=== PATIENT | male | born 1970 | race Caucasian/White ===

== ENCOUNTER 2017-04-16 17:09 | Emergency (ER) | payer BC ==
[2017-04-16] MEDS ORDERED: ONDANSETRON HCL 4 MG/2 ML VIAL ONE ×2 (17:35→18:31)
[2017-04-16] MEDS ORDERED: KETOROLAC TROMETHAMINE 30 MG/ML VIAL ONE (17:35)
--- NOTE | 2017-04-16 18:02 | CT REPORT ---
HISTORY: Left flank pain. COMPARISON: None. TECHNIQUE: This examination was performed using automated exposure control, adjustment of mA or kV according to patient size, and/or use of iterative reconstruction technique. Axial contiguous images of the abdome n and pelvis were obtained without oral or IV contrast, coronal reformat images also performed. FINDINGS: LUNGS: There are dependent atelectatic changes. The visualized lungs are otherwise clear. Hepatobiliary:The liver is of diffusely decreased attenuation suggesting moderate fatty infiltration. Foci of increased attenuation within the hepatic parenchyma abutting the gallbladder fossa are most consistent with focal fatty sparing. There is no evidence of biliary ductal dilatation. The gallbladd er is incompletely distended. Spleen: Normal in size and radiographic appearance. Pancreas: No focal pancreatic lesion or pancreatic ductal dilatation. Adrenals:Unremarkable. Kidneys: The kidneys are normal in size bilaterally. There is mild left hydroureteronephrosis, and a 4 x 4 x 4 mm calculus within the proximal left ureter at the level of the left L2 transverse process, best seen image 43 of series 2. There is no evidence of renal or right ureteral calculus. Peritoneum: There is no evidence of free fluid or free air. Vessels: Unremarkable. Lymph nodes: There is no lymphadenopathy. Bowel: The stomach is incompletely distended. The small bowel appears unremarkable. . The colon is in completely distended with stool. No focal bowel wall thickening is seen. Pelvis: The bladder appears unremarkable, without intraluminal mass or calculus. The prostate is mild ly enlarged with median lobe hypertrophy. Bones: The bones are normally mineralized and aligned. No blastic or lytic lesions are seen. The sof t tissues appear unremarkable. IMPRESSION: 1. 4 mm proximal left ureteral calculus with mild associated left hydroureteronephrosis. 2. Fatty infiltration of the liver is nonspecific in appearance, and may reflect infectious, inflamma tory or toxic/metabolic insult. Final Electronic Signature: This report was electronically signed by Michael Duong MD on 7 5:59 PM. tray /
--- NOTE | 2017-04-16 19:19 | ER NURSING DOCUMENTATION ---
Nurse's Notes [facility] Name:Michael Decker Age:46 yrs Sex:Male :1970 Arrival Date:04/16/2017 Time:17:09 Bed1 Private MD: Diagnosis:Ureterolithiasis - Renal Colic Presentation: 04/16 17:12 Acuity: VÍCTOR 2 st 17:17 Presenting complaint: Patient states: pt has had left flank pain that wraps around st toweds the abd for a few hours. Transition of care: patient was not received from another setting of care. 17:17 Method Of Arrival: Private Vehicle st Triage Assessment: 17:19 General: Appears uncomfortable, Behavior is cooperative. Pain: Complains of pain in st anterior aspect of left lateral abdomen and posterior aspect of left lateral abdomen Pain currently is 10 out of 10 on a pain scale. Quality of pain is described as crampy, Pain began 3 hours ago. Cardiovascular: No deficits noted. Respiratory: No deficits noted. GI: Abdomen is flat, non- distended Abd is soft and non tender X 4 quads. Reports nausea, vomiting. Historical: - Allergies: PENICILLINS; - Home Meds: 1. Metoprolol Tartrate Oral - PMHx: Hypertension; - Tetanus: < 10 years. - Ebola Screening: : Patient denies exposure to infectious person. Patient denies travel to an Ebola-affected area in the 21 days before illness onset. . - Social history: Smoking status: Patient states was never smoker of tobacco. Patient uses alcohol Patient/guardian denies using marijuana. Screenin:20 Infectious Disease Risk None. Abuse screen: Denies threats or abuse. Denies injuries st from another. Nutritional screening: No deficits noted. Assessment: 17:25 General: pt is restless.. st 18:16 General: pt states his pain is coming back full force with nausea again. . st Vital Signs: 17:14 BP 132 / 105 LA Sitting (auto/lg); Pulse 76 RA; Resp 22 S; Temp 98.6(O); Pulse Ox 91% em3 on R/A; Weight 136.08 kg (R); Height 5 ft. 9 in. (175.26 cm) (R); Pain 10/10; 17:52 Pain 2/10; st 18:28 Pulse 78; Resp 16; Pulse Ox 92% on 2 lpm NC; st 19:16 BP 132 / 79; Pulse 88; Resp 16; Pulse Ox 94% on R/A; sc1 17:14 Body Mass Index 44.30 (136.08 kg, 175.26 cm) em3 ED Course: 17:10 Patient arrived in ED. ama 17:12 Triage completed. rh 17:14 Benny Colin MD is Attending Physician. sc 17:15 Valuables Remains with patient Patient has correct armband on for positive em3 identification. Placed in gown. Bed in low position. Call light in reach. Side rails up X 1. 17:16 Toyin Teresa, RN is Primary Nurse. st 17:24 Inserted peripheral IV: 20 gauge in right antecubital area. st 17:[address] hz 17:48 Patient moved back from CT. hz 17:52 Discontinued IV got caught and pulled on trip to radiology. st 17:56 Urine collected. Voided. st 18:05 Blair Reinoso MD is Referral Physician. sc 18:18 Missed attempts: 22 gauge X 1 in right hand, Bleeding controlled, band aid applied, em3 catheter tip intact. 18:24 Inserted peripheral IV: 22 gauge in left antecubital area. em3 18:29 Oxygen Oxygen administration via nasal cannula @ 2L/min. st 19:16 Discontinued lock intact, bleeding controlled, pressure dressing applied, No sc1 redness/swelling at site. Administered Medications: 17:24 Drug: Toradol 30 mg; Route: IVP; Site: right antecubital; st 18:16 Follow up: Response: Pain is decreased st 17:25 Drug: Zofran 4 mg; Route: IVP; Infused Over: 2 mins; Site: right antecubital; st 18:16 Follow up: Response: Nausea is decreased st 17:25 Drug: NS 0.9% 1000 ml; Route: IV; Rate: bolus; Site: right antecubital; st 19:19 Follow up: IV Status: Completed infusion; IV Intake: 1000ml sc1 18:27 Drug: Zofran 4 mg; Route: IVP; Infused Over: 2 mins; Site: left antecubital; st 19:18 Follow up: Response: No adverse reaction; Nausea is decreased sc1 18:27 Drug: Dilaudid 1 mg; Route: IVP; Site: left antecubital; st 19:19 Follow up: Response: No adverse reaction; Pain is decreased [facility] Point of Care Testing: Urine Dip: 18:00 pH: 6.0; ; Specific [place]: 1.020; Ketones: Negative; Glucose: Negative; Protein: em3 Positive (+); Leukocytes: Negative; Nitrite: Negative ; Blood: Large (+++); Bilirubin: Negative ; Urobilinogen: Normal Intake: 19:19 IV: 1000ml; Total: 1000ml. [facility] Outcome: 18:05 Discharge ordered by . nm 19:16 Discharged to home ambulatory. [facility] 19:16 Condition: stable 19:16 Discharge instructions given to patient, Instructed on discharge instructions, follow up and referral plans. medication usage, Demonstrated understanding of instructions, medications, Prescriptions given X 2. 19:18 Patient left the ED. [facility] 04/17 10:34 Discharge F/U Call: Unable to reach: no answer 04/18 09:27 Discharge F/U Call: Spoke with: patient. other: Name: pt states he is still sore but st the pain is manageable with the pain meds. Pt has no questions or concerns at this time. Signatures: Toyin Teresa RN RN st Campbell, Sandy, RN RN nm1 Benny Colin MD MD sc Meiklejohn, Eric em3 Averdick, Andrew, Reg Reg ama Hofsess, Rachel rh Zolnowski, Heather
--- NOTE | 2017-04-16 19:19 | ER PHYSICIAN DOCUMENTATION ---
Physician Documentation [facility] Name:Michael Decker Age:46 yrs Sex:Male :1970 Arrival Date:04/16/2017 Time:17:09 Bed1 Private MD: Benny Dumont Disposition: 04/16/17 18:05 Discharged to Home/Self Care. Impression: Ureterolithiasis - Renal Colic. - Condition is Good. - Discharge Instructions: KIDNEY STONE w/ Colic. - Prescriptions for Zofran 4 mg Oral Tablet - take 1 tablet by ORAL route every 12 hours .; 20 tablet. Hydrocodone- Acetaminophen 5-325 mg Oral Tablet - take 1 tablet by ORAL route every 6 hours As needed; 20 tablet. - Medical Reconciliation form form. - Follow up: Blair Reinoso MD; When: 2 - 3 days; Reason: Worsening of condition. - Problem is new. - Symptoms have improved. HPI: 04/16 18:02 This 46 yrs old Male presents to ER via Private Vehicle with complaints of sc Flank Pain - L. 18:02 The patient complains of pain in the left mid back. The pain radiates to the anterior sc aspect of left lateral abdomen. Onset: The symptom(s)/episode began/occurred today. Modifying factors: The symptoms are alleviated by nothing. Associated signs and symptoms: Pertinent positives: nausea. Severity of pain: At its worst the pain was incapacitating. The patient has not experienced similar symptoms in the past. Historical: - Allergies: PENICILLINS; - Home Meds: 1. Metoprolol Tartrate Oral - PMHx: Hypertension; - Tetanus: < 10 years. - Ebola Screening: : Patient denies exposure to infectious person. Patient denies travel to an Ebola-affected area in the 21 days before illness onset. . - Social history: Smoking status: Patient states was never smoker of tobacco. Patient uses alcohol Patient/guardian denies using marijuana. ROS: 18:03 Constitutional: Negative for fever, chills, and weight loss. sc Eyes: Negative for injury, pain, redness, and discharge. ENT: Negative for injury, pain, and discharge. Neck: Negative for injury, pain, and swelling. Cardiovascular: Negative for chest pain, palpitations, and edema. Respiratory: Negative for shortness of breath, cough, wheezing, and pleuritic chest pain. Back: Negative for injury and pain. MS/Extremity: Negative for injury and deformity. 18:03 Skin: Negative for injury, rash, and discoloration. sc 18:03 Abdomen/GI: Positive for nausea, Negative for diarrhea, constipation, abdominal cramps, abdominal distension, dysphagia, hematemesis. 18:03 : Positive for flank pain. Exam: Head/Face: Normocephalic, atraumatic. Eyes: Pupils equal round and reactive to light, extra-ocular motions intact. Lids and lashes normal. Conjunctiva and sclera are non-icteric and not injected. Cornea within normal limits. Periorbital areas with no swelling, redness, or edema. Neck: Trachea midline, no thyromegaly or masses palpated, and no cervical lymphadenopathy. Supple, full range of motion without nuchal rigidity, or vertebral point tenderness. No meningismus. Cardiovascular: Regular rate and rhythm with a normal S1 and S2. No gallops, murmurs, or rubs. Normal PMI, no JVD. No pulse deficits. Respiratory: Lungs have equal breath sounds bilaterally, clear to auscultation and percussion. No rales, rhonchi or wheezes noted. No increased work of breathing, no retractions or nasal flaring. Back: No spinal tenderness. No costovertebral tenderness. Full range of motion. 18:04 Skin: Warm, dry with normal turgor. Normal color with no rashes, no lesions, and no sc evidence of cellulitis. 18:04 Constitutional: The patient appears restless, uncomfortable. 18:04 Abdomen/GI: Inspection: abdomen appears normal, Bowel sounds: normal, Palpation: abdomen is soft and non-tender. 18:04 : CVA tenderness, on the left. Vital Signs: 17:14 BP 132 / 105 LA Sitting (auto/lg); Pulse 76 RA; Resp 22 S; Temp 98.6(O); Pulse Ox 91% em3 on R/A; Weight 136.08 kg (R); Height 5 ft. 9 in. (175.26 cm) (R); Pain 10/10; 17:52 Pain 2/10; st 18:28 Pulse 78; Resp 16; Pulse Ox 92% on 2 lpm NC; st 19:16 BP 132 / 79; Pulse 88; Resp 16; Pulse Ox 94% on R/A; sc1 17:14 Body Mass Index 44.30 (136.08 kg, 175.26 cm) em3 MDM: 17:14 Patient medically screened. ga 18:04 Differential diagnosis: nephrolithiasis, pyelonephritis. Data reviewed: vital signs, ga nurses notes, lab test result(s), radiologic studies, CT scan, and as a result, I will discharge patient. Counseling: I had a detailed discussion with the patient and/or guardian regarding: the historical points, exam findings, and any diagnostic results supporting the discharge/admit diagnosis, lab results, radiology results, the need for outpatient follow up, to return to the emergency department if symptoms worsen or persist or if there are any questions or concerns that arise at home. Medication response: The patient's symptoms have improved. 04/16 18:04 Order name: CAT SCAN; ABD/[place] [id number] EDID 04/16 17:22 Order name: Urine Dip; Complete Time: 18:02 ga 04/16 18:29 Order name: Oxygen; Complete Time: 18:29 Dispensed Medications: 17:24 Drug: Toradol 30 mg; Route: IVP; Site: right antecubital; st 18:16 Follow up: Response: Pain is decreased st 17:25 Drug: Zofran 4 mg; Route: IVP; Infused Over: 2 mins; Site: right antecubital; st 18:16 Follow up: Response: Nausea is decreased st 17:25 Drug: NS 0.9% 1000 ml; Route: IV; Rate: bolus; Site: right antecubital; st 19:19 Follow up: IV Status: Completed infusion; IV Intake: 1000ml [facility] 18:27 Drug: Zofran 4 mg; Route: IVP; Infused Over: 2 mins; Site: left antecubital; st 19:18 Follow up: Response: No adverse reaction; Nausea is decreased ga1 18:27 Drug: Dilaudid 1 mg; Route: IVP; Site: left antecubital; st 19:19 Follow up: Response: No adverse reaction; Pain is decreased ga1 Point of Care Testing: Urine Dip: 18:00 pH: 6.0; ; Specific [place]: 1.020; Ketones: Negative; Glucose: Negative; Protein: em3 Positive (+); Leukocytes: Negative; Nitrite: Negative ; Blood: Large (+++); Bilirubin: Negative ; Urobilinogen: Normal Signatures: Toyin Teresa, RN RN st Montse Cowart RN RN sc1 Benny Colin MD MD ga
== END 2017-04-16 19:19 | disposition home or self-care (01) ==
LOC: ER 17:09 → EDSEX 17:09 → ER 19:19
DX: N20.1 Calculus of ureter (principal); N23 Unspecified renal colic; R11.0 Nausea; I10 Essential (primary) hypertension; Z79.899 Other long term (current) drug therapy
CPT/HCPCS: 74176; 96361; 96374; 96375; 96376; 99285; J1170; J1885; J2405